=== PATIENT | female | born 1955 | race African-American/Black ===

== ENCOUNTER 2017-01-17 07:00 | Emergency (ER) | payer OTHER ==
[~2017-01-17] VITALS: Ht 175.3 cm; Wt 86.2 kg
[~2017-01-17 07:00] MED LIST: CARBAMAZEPINE200 MG ORAL; GABAPENTIN100 MG ORAL
[2017-01-17] MEDS ORDERED: Acetaminophen 500mg (ES) tab ORAL ONE (07:15)
--- NOTE | 2017-01-17 07:20 | Emergency Room Report ---
History of Present Illness General Chief Complaint: Headache Source: Patient Present Illness HPI This patient has a history of trigeminal neuralgia on the right side of her face. She states that she has had this for many years. She states that she ran out of all her medications and is having a very bad flare. She states that she typically uses Tylenol and gabapentin. She denies recent illness. She denies trauma. She denies fever or chills. She denies neck pain. She denies change in vision. She has no other complaints. Allergies: Coded Allergies: No Known Allergies (Unverified , 01/17/17) Patient History Past Medical History: see triage record, HTN, other - MS Social History: Denies: alcohol use, drug use, smoking Reviewed Nursing Documentation: PMH: Agreed, PSxH: Agreed Nursing Documentation-PMH Past Medical History: No History, Except For Hx Hypertension: Yes Hx Neurological Problems: Yes - MS Review of Systems All Other Systems: negative except mentioned in HPI Physical Exam Vital Signs Date Time Temp Pulse Resp B/P Pulse Ox O2 Delivery O2 Flow Rate FiO2 01/17/17 06:48 98.4 107 18 177/100 98 Room Air Sp02 EP Interpretation: reviewed, normal General Appearance: no apparent distress, alert, GCS 15, non-toxic Head: normocephalic, atraumatic, other - Male pattern hair distribution on face with mustache, curry. Eyes: right eye abnormal EOM - R. eye rotates R. Strabismus (PT states chronic ), bilateral eye PERRL ENT: hearing grossly normal, normal pharynx, no angioedema, normal voice Neck: full range of motion, supple/symm/no masses Respiratory: chest non-tender, lungs clear, normal breath sounds, speaking full sentences Cardiovascular #1: regular rate, rhythm, no edema, systolic murmur Gastrointestinal: normal bowel sounds, non tender, soft, non-distended, no guarding, no rebound Rectal: deferred Musculoskeletal: back normal, gait/station normal, normal range of motion, non- tender Neurologic: alert, oriented x3, responsive, motor strength/tone normal, sensory intact, speech normal, other - See eye exam Psychiatric: judgement/insight normal, memory normal, mood/affect normal, no suicidal/homicidal ideation Skin: normal color, no rash, warm/dry, well hydrated Medical Decision Making Diagnostic Impression: Primary Impression: Trigeminal neuralgia of right side of face ER Course This patient presents for her typical trigeminal neuralgia. She also has hirsutism on exam. This appears to be chronic. However, I did educate the patient that she should followup with her primary care physician for further evaluation for this. The patient does have a history of MS possibly this is related. Other considerations include adrenal hyperplasia, androgen secreting tumor, prolactinemia to name a few. The patient did undergo basic laboratory workup to include a CBC, CMP and urinalysis which were unremarkable. Patient also underwent head CT that showed no acute findings. The patient was given close return precautions and followup instructions. Labs Test 01/17/17 07:15 White Blood Count 6.6 K/UL (4.8-10.8) Red Blood Count 3.80 M/UL (4.20-5.40) Hemoglobin 12.8 G/DL (12.0-16.0) Hematocrit 39.6 % (37.0-47.0) Mean Corpuscular Volume 104 FL (80-99) Mean Corpuscular Hemoglobin 33.8 PG (27.0-31.0) Mean Corpuscular Hemoglobin Concent 32.4 G/DL (32.0-36.0) Red Cell Distribution Width 13.9 % (11.6-14.8) Platelet Count 220 K/UL (150-450) Mean Platelet Volume 6.6 FL (6.5-10.1) Neutrophils (%) (Auto) 75.6 % (45.0-75.0) Lymphocytes (%) (Auto) 16.8 % (20.0-45.0) Monocytes (%) (Auto) 6.9 % (1.0-10.0) Eosinophils (%) (Auto) 0.1 % (0.0-3.0) Basophils (%) (Auto) 0.6 % (0.0-2.0) Sodium Level 145 mEQ/L (135-145) Potassium Level 3.5 mEQ/L (3.4-4.9) Chloride Level 101 mEQ/L (98-107) Carbon Dioxide Level 31 mEQ/L (20-30) Anion Gap 13 (5-15) Blood Urea Nitrogen 14 mg/dL (7-23) Creatinine 0.6 mg/dL (0.5-0.9) Estimat Glomerular Filtration Rate > 60 mL/min (>60) Glucose Level 151 mg/dL (74-106) Calcium Level 9.4 mg/dL (8.6-10.2) Total Bilirubin 0.2 mg/dL (0.0-1.2) Aspartate Amino Transf (AST/SGOT) 15 U/L (5-40) Alanine Aminotransferase (ALT/SGPT) 13 U/L (3-33) Alkaline Phosphatase 75 U/L (35-104) Total Protein 7.7 g/dL (6.6-8.7) Albumin 4.3 g/dL (3.5-5.2) Globulin 3.4 g/dL Albumin/Globulin Ratio 1.2 (1.0-2.7) CT/MRI/US Diagnostic Results CT/MRI/US Diagnostic Results : Imaging Test Ordered: CT head Impression Asymmetric prominence to the extra axial CSF space on the right. Most likely asymmetric cortical [place]. Chronic subdural collection deemed much less likely, not completely excludable. Evidence of prior right occipital surgery with underlying cerebellar encephalomalacia. No acute intracranial bleed or mass effect. See official report. Last Vital Signs Date Time Temp Pulse Resp B/P Pulse Ox O2 Delivery O2 Flow Rate FiO2 01/17/17 06:48 98.4 107 18 177/100 98 Room Air Disposition: HOME, SELF-CARE Condition: Improved ROXANA LEROY D.O. Jan 17, 2017 07:20
[2017-01-17 07:30] VITALS: BP 164/72
[2017-01-17 07:33] LABS: BASOPHILS % (AUTO) 0.6 % (0.0-2.0); EOSINOPHILS % (AUTO) 0.1 % (0.0-3.0); LYMPHOCYTES % (AUTO) 16.8 % (20.0-45.0); MEAN CORPUSCULAR HEMOGLOBIN 33.8 PG (27.0-31.0); MEAN CORPUSCULAR HGB CONC 32.4 G/DL (32.0-36.0); MEAN CORPUSCULAR VOLUME 104 FL (80-99); MEAN PLATELET VOLUME 6.6 FL (6.5-10.1); MONOCYTES % (AUTO) 6.9 % (1.0-10.0); NEUTROPHILS % (AUTO) 75.6 % (45.0-75.0); PLATELET COUNT 220 K/UL (150-450); RED CELL DISTRIBUTION WIDTH 13.9 % (11.6-14.8); WHITE BLOOD COUNT 6.6 K/UL (4.8-10.8)
[2017-01-17 07:49] LABS: ALANINE AMINOTRANSFERASE 13 U/L (3-33); ALBUMIN/GLOBULIN RATIO 1.2 (1.0-2.7); ANION GAP 13 (5-15); ASPARTATE AMINO TRANSFERASE 15 U/L (5-40); CALCIUM 9.4 mg/dL (8.6-10.2); CARBON DIOXIDE 31 mEQ/L (20-30); CHLORIDE 101 mEQ/L (98-107); CREATININE 0.6 mg/dL (0.5-0.9); GLOMERULAR FILTRATION RATE > 60 mL/min (>60); HEMOLYSIS 1; POTASSIUM 3.5 mEQ/L (3.4-4.9); SODIUM 145 mEQ/L (135-145); TOTAL PROTEIN 7.7 g/dL (6.6-8.7)
--- NOTE | 2017-01-17 08:29 | Diagnostic Imaging Report ---
Indications: History trigeminal neuralgia on the right side of her face, currently without FLAIR of pain Technique: Spiral acquisitions obtained through the brain. Angled axial and coronal 5 x 5 mm slices were reconstructed. Total dose length product 1284 mGycm. CTDI vol(s) 70 mGy. Dose reduction achieved using automated exposure control Comparison: None Findings: There is asymmetric prominence to the extra-axial CSF space in the right. There is a right occipital craniotomy/craniectomy defect, with underlying cerebellar encephalomalacia. No evidence of acute hemorrhage or edema. No mass effect or midline shift. Mild age-related enlargement of ventricles and extra-axial CSF spaces otherwise. Intact calvarium otherwise. Minimal right axillary sinus disease. Mastoids are clear. Impression: Asymmetric prominence to the extra-axial CSF space on the right. Most likely [place] on the basis of asymmetric cortical volume loss. Chronic subdural collection deemed much less likely, not completely excludable. Evidence of prior right occipital surgery with underlying cerebellar encephalomalacia No acute intracranial bleed or mass effect. The CT scanner at [facility] is accredited by the [employer] and the scans are performed using protocols designed to limit radiation exposure to as low as reasonably achievable to attain images of sufficient resolution adequate for diagnostic evaluation.
[2017-01-17] MEDS ORDERED: CARBAMAZEPINE200 MG ORAL (08:34)
[2017-01-17] MEDS ORDERED: ACETAMINOPHEN500 M3 ORAL (08:34)
[2017-01-17] MEDS ORDERED: GABAPENTIN100 MG ORAL (08:34)
[2017-01-17 09:00] VITALS: BP 147/63
[2017-01-17 10:00] VITALS: BP 145/61
[2017-01-17 10:20] VITALS: BP 145/61
[2017-01-17 10:53] LABS: THYROID STIMULATING HORMONE 1.95 uIU/mL (0.300-4.500)
== END 2017-01-17 10:20 | disposition home or self-care (01) ==
LOC: EDBD 07:00 → EMR 07:30
DX: G50.0 Trigeminal neuralgia (principal); I10 Essential (primary) hypertension; G35 Multiple sclerosis
CPT/HCPCS: 36415; 70450; 80053; 84439; 84443; 85025; 99284